=== PATIENT | male | born 1965 | race Caucasian/White ===

== ENCOUNTER 2018-08-23 03:13 | Emergency (ER) | payer OTHER ==
[~2018-08-23] VITALS: Ht 175.3 cm; Wt 109.1 kg
--- NOTE | 2018-08-23 03:16 | NUR ---
DR OLIVAREZ AT BEDSIDE WITH PT
[2018-08-23 04:24] VITALS: BP 170/98
== END 2018-08-23 04:31 | disposition home or self-care (01) ==
LOC: ER 03:14
DX: S40.021A Contusion of right upper arm, initial encounter (principal); S80.211A Abrasion, right knee, initial encounter; S00.81XA Abrasion of other part of head, initial encounter; M25.522 Pain in left elbow; F17.200 Nicotine dependence, unspecified, uncomplicated; F11.90 Opioid use, unspecified, uncomplicated; Z60.2 Problems related to living alone; Y35.313A Legal intervention involving baton, suspect injured, initial encounter; Y93.02 Activity, running; Y92.89 Other specified places as the place of occurrence of the external cause; Y99.8 Other external cause status
CPT/HCPCS: 73060; 73070; 73564; 99283